=== PATIENT | male | born 1990 ===

== ENCOUNTER 2017-10-20 10:21 | Emergency (ER) | payer BC, OTHER ==
[2017-10-20 12:25] LABS: Amphetamine Screen,Urine Not Detected (NotDetected); Barbiturate Screen,Urine Not Detected (NotDetected); Benzodiazepines Screen,Urine Not Detected (NotDetected); Cocaine Screen,Urine Not Detected (NotDetected); Methadone Screen, Urine Not Detected (NotDetected); Opiate Screen,Urine Not Detected (NotDetected); Oxycodone Screen, Urine Not Detected (NotDetected); Phencyclidine Screen,Urine Not Detected (NotDetected); Tricyclic Antidepressant,Urine Not Detected (NotDetected); Urn Cannabinoid Scrn Not Detected (NotDetected)
--- NOTE | 2017-10-20 12:48 | ED ---
Psych HPI - General Chief Complaint: Psychiatric Symptoms Stated Complaint: Mental health Time Seen by Provider: 10/20/17 10:38 Source: patient, police, RN notes reviewed Mode of arrival: ambulatory Limitations: no limitations - History of Present Illness Initial Comments: This a 27-year-old male presents emergency Department chief complaint of psychiatric problems. Patient states that he was suicidal earlier today states he went to go, himself by jumping off something or doing something else. Patient will not be specific. Patient was brought in the emergency department by [facility]. Patient states that his girlfriend must have called. He states he does have a history of depression has been admitted to the hospital before for psychiatric issues. Denies any illicit drug use no alcohol abuse. Denies any physical complaints. - Related Data Previous Rx's Medication Instructions Recorded FLUoxetine HCL [PROzac] 20 mg PO DAILY #30 cap 08/30/16 traZODone HCL [Desyrel] 50 mg PO HS #30 tab 08/30/16 Allergies Allergy/AdvReac Type Severity Reaction Status Date / Time crab Allergy Swelling Verified 10/20/17 11:02 Review of Systems ROS Statement: Those systems with pertinent positive or pertinent negative responses have been documented in the HPI. ROS Other: All systems not noted in ROS Statement are negative. Past Medical History Past Medical History: No Reported History Additional Past Medical History / Comment(s): Suicide attempt History of Any Multi-Drug Resistant Organisms: MRSA Date of last positivie culture/infection: 2008 MDRO Source:: Arm Past Surgical History: Appendectomy Past Psychological History: Anxiety, Bipolar Smoking Status: Former smoker Past Alcohol Use History: Occasional Past Drug Use History: None Reported - Past Family History Father Additional Family Medical History / Comment(s): Father from suicide with long history of depression. Mother Additional Family Medical History / Comment(s): Mother is alive at age 48 with no major medical problems. Brother(s) Additional Family Medical History / Comment(s): He has one brother and 2 sisters with no major medical problems. General Exam General appearance: alert, in no apparent distress Head exam: Present: atraumatic, normocephalic, normal inspection Eye exam: Present: normal appearance, PERRL, EOMI. Absent: scleral icterus, conjunctival injection, periorbital swelling ENT exam: Present: normal exam, normal oropharynx, mucous membranes moist, TM's normal bilaterally, normal external ear exam Neck exam: Present: normal inspection, full ROM. Absent: tenderness, meningismus, lymphadenopathy Respiratory exam: Present: normal lung sounds bilaterally. Absent: respiratory distress, wheezes, rales, rhonchi, stridor Cardiovascular Exam: Present: regular rate, normal rhythm, normal heart sounds. Absent: systolic murmur, diastolic murmur, rubs, gallop, clicks GI/Abdominal exam: Present: soft, normal bowel sounds. Absent: distended, tenderness, guarding, rebound, rigid Back exam: Absent: CVA tenderness (R), CVA tenderness (L) Neurological exam: Present: alert, oriented X3, CN II-XII intact Psychiatric exam: Present: flat affect Skin exam: Present: warm, dry, intact, normal color. Absent: rash Course Vital Signs 10/20/17 10:25 Temperature 98.1 F Pulse Rate 81 Respiratory 18 Rate Blood Pressure 125/87 O2 Sat by Pulse 99 Oximetry Medical Decision Making - Medical Decision Making 27-year-old male present emergency from for psychiatric evaluation. Patient was evaluated by [facility] and [facility] in case discussed with psychiatrist. They do not recommend inpatient treatment. [facility] has an appointment set up for an patient contracted for safety. Patient will be discharged. - Lab Data Lab Results 10/20/17 Range/Units 11:59 Urine Opiates Screen Not Detected (NotDetected) Ur Oxycodone Screen Not Detected (NotDetected) Urine Methadone Screen Not Detected (NotDetected) Ur Propoxyphene Screen Not Detected (NotDetected) Ur Barbiturates Screen Not Detected (NotDetected) U Tricyclic Antidepress Not Detected (NotDetected) Ur Phencyclidine Scrn Not Detected (NotDetected) Ur Amphetamines Screen Not Detected (NotDetected) U Methamphetamines Scrn Not Detected (NotDetected) U Benzodiazepines Scrn Not Detected (NotDetected) Urine Cocaine Screen Not Detected (NotDetected) U Marijuana (THC) Screen Not Detected (NotDetected) Disposition Clinical Impression: Depression Disposition: HOME SELF-CARE Condition: Stable Instructions: Depression (ED) Additional Instructions: Please return to the Emergency Department if symptoms worsen or any other concerns. Referrals: None,Stated [Primary Care Provider] - 1-2 days Time of Disposition: 13:18
[2017-10-20 13:25] VITALS: BP 129/87; PULSE 59; RESP 12; TEMP 98
== END 2017-10-20 13:29 | disposition home or self-care (01) ==
LOC: EC 10:21
DX: F32.9 Major depressive disorder, single episode, unspecified (principal); R45.851 Suicidal ideations; Z87.891 Personal history of nicotine dependence; Z91.013 Allergy to seafood; Z86.14 Personal history of Methicillin resistant Staphylococcus aureus infection; Z81.8 Family history of other mental and behavioral disorders; Z91.5 Personal history of self-harm
CPT/HCPCS: 80306; 82075; 99284

== ENCOUNTER → 2019-05-17 | Outpatient (CLI) | payer OTHER ==
--- NOTE | 2019-05-17 13:25 | CT ---
EXAMINATION TYPE: CT lower extremity LT wo con DATE OF EXAM: 05/17/2019 COMPARISON: None available HISTORY: 29-year-old male Left lower leg pain, fracture of shaft. There is a history of prior trauma in October 2018. TECHNIQUE: Contiguous axial scanning of the left leg from the level of the knee to the ankle without IV contrast. Coronal and sagittal reconstructions performed. 3-D reconstructions generated on a Ring [employer] independent workstation. CT DLP: 1666.1 mGycm Automated exposure control for dose reduction was used. FINDINGS: There is post surgical change of antegrade intramedullary nail within the left tibia. The intramedull evonne nail traverses a transverse fracture of the distal tibial shaft. There is very minimal lateral di splacement of 4 mm and somewhat sclerotic fracture margins with incomplete bony bridging. There is a bony defect measuring up to 2.9 cm craniocaudal along the posterolateral aspect of the fracture site and likely with the fracture fragment is raised cephalad, refer to sagittal image 22. Additional mildly displaced transverse fracture through the distal fibular shaft with mild lateral di splacement. There is prominent periosteal callus but incomplete bony bridging and somewhat sclerotic fracture margins demonstrated. No acute fracture is identified. Periarticular disuse osteopenia suggested. IMPRESSION: 1. ANTEGRADE INTRAMEDULLARY NAIL ACROSS THE MINIMALLY DISPLACED, MILDLY COMMINUTED TRANSVERSE DISTAL TIBIAL SHAFT FRACTURE. 2. FRACTURE MARGINS ARE SCLEROTIC. IF THE ORIGINAL INJURY WAS IN OCTOBER 2018, FINDINGS ARE CONCERNI NG FOR DELAYED UNION. 3. A 2.9 CM CORTICAL FRACTURE FRAGMENT SHOWS CHRONIC CEPHALAD DISPLACEMENT FROM THE POSTEROLATERAL PECT OF THE FRACTURE SITE. 4. ADDITIONAL FINDINGS SUGGESTIVE OF DELAYED UNION AT THE MILDLY DISPLACED DISTAL FIBULAR SHAFT FRACT URE.
== END | disposition home or self-care (01) ==
LOC: RADCTMAIN 12:04
PROVIDERS: ATTEND Orthopaedic Surgery
DX: S82.392G Other fracture of lower end of left tibia, subsequent encounter for closed fracture with delayed healing (principal)